=== PATIENT | female | born 1965 | race Two or more races ===

== ENCOUNTER 2024-08-22 08:53 | Emergency (ER) | payer BC ==
[~2024-08-22] VITALS: Ht 152.4 cm; Wt 56.2 kg
[2024-08-22] MEDS ORDERED: AMLODIPINE BESYL5 MG PO (09:26)
[2024-08-22] MEDS ORDERED: KETOROLAC TROMETHAMINE 60 MG VIAL IM ONE (10:00)
[2024-08-22] MEDS ORDERED: TETANUS & DIPHTHERIA TOX,ADULT 0.5 ML VIAL IM ONE (10:00)
[2024-08-22] MEDS ORDERED: LIDOCAINE HCL 1% 10ML VIAL PERCUT ONE (10:00)
[2024-08-22] MEDS ORDERED: CEFTRIAXONE SODIUM 1,000 MG VIAL IM ONE (10:00)
[2024-08-22] MEDS ORDERED: PEPCID AC20 MG PO (10:12)
[2024-08-22] MEDS ORDERED: CEPHALEXIN750 MG PO (10:12)
== END 2024-08-22 10:23 | disposition home or self-care (01) ==
LOC: ER 08:55
DX: S61.213A Laceration without foreign body of left middle finger without damage to nail, initial encounter (principal); W26.8XXA Contact with other sharp object(s), not elsewhere classified, initial encounter; Y93.89 Activity, other specified; Y92.89 Other specified places as the place of occurrence of the external cause; Y99.8 Other external cause status; I10 Essential (primary) hypertension